=== PATIENT | male | born 1980 | race Two or more races ===

== ENCOUNTER 2022-02-17 19:19 | Emergency (ER) | payer OTHER ==
[~2022-02-17] VITALS: Ht 180.3 cm; Wt 127.0 kg
[2022-02-17] MEDS ORDERED: DEXAMETHASONE SOD PHOSPHATE 4 MG/ML VIAL ONE (19:43)
[2022-02-17] MEDS ORDERED: METHOCARBAMOL (500MG) 500 MG TABLET ONE (19:44)
[2022-02-17] MEDS ORDERED: MORPHINE SULFATE INJ 4 MG/ML DISP.SYRIN ONE (19:58)
[2022-02-17] MEDS ORDERED: DEXAMETHASONE SOD PHOSPHATE 4 MG/ML VIAL IM ONE (20:00)
[2022-02-17] MEDS ORDERED: METHOCARBAMOL (750MG) 750 MG TABLET PO SCH (20:00)
[2022-02-17] MEDS ORDERED: MORPHINE SULFATE INJ 4 MG/ML DISP.SYRIN IM ONE (20:00)
[2022-02-17] MEDS ORDERED: NAPR-1164 PO (20:57)
[2022-02-17] MEDS ORDERED: METH-647 PO (20:57)
[2022-02-17] MEDS ORDERED: HYDR-4303 PO (20:57)
[2022-02-17 21:00] VITALS: BP 120/61
== END 2022-02-17 22:00 | disposition home or self-care (01) ==
LOC: ER 19:25
DX: G89.29 Other chronic pain (principal); M54.42 Lumbago with sciatica, left side; E66.9 Obesity, unspecified; Z68.39 Body mass index [BMI] 39.0-39.9, adult; Z60.2 Problems related to living alone
CPT/HCPCS: 72110; 96372 ×2; 99284; J1100; J2270